=== PATIENT | male | born 1990 | race Caucasian/White ===

== ENCOUNTER 2018-02-10 21:22 | Emergency (ER) | payer OTHER ==
[~2018-02-10] VITALS: Ht 172.7 cm; Wt 95.3 kg
[~2018-02-10 21:22] MED LIST: ACETAMINOPHEN-H1 TA2 PO; ANUSOL-HC25 MG R; FLAGYL500 MG PO; LOMOTIL 0.025 M1 TA1 PO; PRILOSEC20 M2 PO; ZOFRAN ODT4 MG SL
[2018-02-10] MEDS ORDERED: NAPROSYN500 MG PO (23:35)
[2018-02-10] MEDS ORDERED: CYCLOBENZAPRINE10 MG PO (23:35)
== END 2018-02-11 01:17 | disposition home or self-care (01) ==
LOC: ED 21:22
DX: S39.012A Strain of muscle, fascia and tendon of lower back, initial encounter (principal); S16.1XXA Strain of muscle, fascia and tendon at neck level, initial encounter; F17.200 Nicotine dependence, unspecified, uncomplicated; Z88.1 Allergy status to other antibiotic agents; Z88.0 Allergy status to penicillin; Z98.890 Other specified postprocedural states; V49.59XA Passenger injured in collision with other motor vehicles in traffic accident, initial encounter; Y93.89 Activity, other specified; Y92.413 State road as the place of occurrence of the external cause; Y99.9 Unspecified external cause status